=== PATIENT | female | born 1995 | race Caucasian/White ===

== ENCOUNTER 2016-09-13 12:38 | Emergency (ER) | payer BC, OTHER ==
[~2016-09-13] VITALS: Wt 54.0 kg
[2016-09-13] MEDS ORDERED: ACYC400T2 PO (13:22)
[2016-09-13] MEDS ORDERED: PRED20TA PO (13:22)
--- NOTE | 2016-09-13 13:24 | ERD ---
ER Documentation Chief Complaint Date/Time DATE: 09/13/16 TIME: 13:23 Chief Complaint R SIDE FACIAL PARALYSIS SINCE TUESDAY. NECK PAIN, NO MOTOR/ SPEECH DEF HPI This 21-year-old female complains of right-sided weakness since Tuesday. She had had a cough last week. She denies any fevers, recent numbness of the extremities, headache, visual changes, bowel or bladder incontinence, additional symptoms ROS All systems reviewed and are negative except as per history of present illness. Medications Home Meds Active Scripts Acyclovir* (Acyclovir*) 400 Mg Tablet, 400 MG PO TID for 5 Days, TAB Prov:ESTEE SAAVEDRA MD 09/13/16 Prednisone* (Prednisone*) 20 Mg Tab, 40 MG PO DAILY for 4 Days, TAB Prov:ESTEE SAAVEDRA MD 09/13/16 Allergies Allergies: Coded Allergies: No Known Allergy (Unverified , 08/05/14) PMhx/Soc History of Surgery: No Anesthesia Reaction: No Hx Neurological Disorder: No Hx Respiratory Disorders: No Hx Cardiac Disorders: No Hx Psychiatric Problems: No Hx Miscellaneous Medical Probl: No Hx Alcohol Use: No Hx Substance Use: No Hx Tobacco Use: No Physical Exam Vitals Vital Signs Date Time Temp Pulse Resp B/P Pulse Ox O2 Delivery O2 Flow Rate FiO2 09/13/16 12:52 97.6 94 20 110/63 98 Physical Exam Const: [] Alert, [id number]. Head: Atraumatic Eyes: Normal Conjunctiva. Eyes are PERRLA and extraocular movements intact ENT: Normal External Ears, Nose and Mouth. Neck: Full range of motion..~ No meningismus. Resp: Clear to auscultation bilaterally Cardio: Regular rate and rhythm, no murmurs Abd: Soft, non tender, non distended. Normal bowel sounds Skin: No petechiae or rashes Back: No midline or flank tenderness Ext: No cyanosis, or edema Neur: Awake and alert. There is isolated peripheral cranial nerve VII palsy. Patient has normal gait and no deficits of the extremities. Psych: Normal Mood and Affect Procedures/MDM Patient has signs and symptoms of Awan's palsy. She will treated with prednisone and acyclovir. There is no evidence of any mass lesions or additional deficits. The patient was stable with no new complaints during the ER course. Clinically, there is no current evidence to suggest meningitis, sepsis, acute abdomen, pneumonia, acute coronary syndrome, pulmonary embolism, or any other emergent condition appearing to require further evaluation or hospitalization. The patient should certainly return for any new or worsening symptoms per the aftercare instructions. They should otherwise follow-up with her primary care doctor for reevaluation this week. Departure Diagnosis: Primary Impression: Awan's palsy Condition: Stable Patient Instructions: Awan's Palsy Additional Instructions: Likely Awan's palsy on average last 3 weeks. Recheck for new or worsening symptoms or primary care doctor ESTEE SAAVEDRA MD Sep 13, 2016 13:24
== END 2016-09-13 14:04 | disposition home or self-care (01) ==
LOC: FTE 12:38
DX: G51.0 Bell's palsy (principal)
CPT/HCPCS: 99284